=== PATIENT | female | born 1955 | race African-American/Black ===

== ENCOUNTER 2018-03-28 14:28 | Outpatient (CLI) | payer MEDICARE ==
--- NOTE | 2018-03-29 11:06 | MMO ---
BILATERAL SCREENING MAMMOGRAM: INDICATION: Baseline exam. COMPARISON: None. FINDINGS: The interpretation of this examination was assisted with computer-aided detection. Scattered fibroglandular elements. There is benign-appearing calcification within the right and left breasts.. No suspicious mass, cluster of microcalcifications, or area of architectural distortion is evident. IMPRESSION: BI-RADS category 2 - benign. Recommend routine annual mammographic screening. BIRADS 2: Benign Finding(s) Routine annual screening mammography (for women over age 40) POS: [facility]
== END 2018-03-28 14:29 | disposition home or self-care (01) ==
LOC: SCSMAMMO 14:28
PROVIDERS: ATTEND Family Medicine
DX: Z12.31 Encounter for screening mammogram for malignant neoplasm of breast (principal)
CPT/HCPCS: 77067

== ENCOUNTER 2018-10-05 10:53 | Outpatient (CLI) | payer MEDICARE, OTHER ==
--- NOTE | 2018-10-05 15:39 | NM ---
THREE PHASE BONE SCAN: INDICATIONS: Pain. History of artificial hip joint. RADIOPHARMACEUTICAL: Technetium 99m MDP 33 millicuries IV. FINDINGS: There is absence of asymmetric increased radiotracer activity of either hip on the blood flow, blood pool, or delayed phase imaging. Photopenic defects on delayed imaging are seen, relative to adjacent osseous activity at each proximal femur, indicating bilateral hip prostheses. Delayed phase imaging reveals scattered areas of degenerative activity within the axial and appendicu lar skeleton. IMPRESSION: 1. No asymmetrically increased scintigraphic activity of either periprosthetic region of the hip mal nts to confirm loosening. Consider radiographic followup of the hip joints as necessary for further assessment. 2. Scattered degenerative activity of the axial and appendicular skeleton. POS: [facility]
== END 2018-10-05 10:54 | disposition home or self-care (01) ==
LOC: NM 10:53
PROVIDERS: ATTEND Specialist
DX: T84.031A Mechanical loosening of internal left hip prosthetic joint, initial encounter (principal); R94.8 Abnormal results of function studies of other organs and systems
CPT/HCPCS: 78315; A9503

== ENCOUNTER 2019-02-01 14:22 | Outpatient (CLI) | payer MEDICARE, OTHER ==
--- NOTE | 2019-02-01 16:00 | MRI ---
MRI RIGHT SHOULDER WITHOUT IV CONTRAST: HISTORY: Right shoulder pain. Soft tissue palpable finding for 1-1/2 months, marked with a skin marker. FINDINGS: There is no evidence for associated soft tissue mass, in association with the skin marker. AC joint arthrosis changes are noted, with some osteochondrolysis and some adjacent marrow edema of the acromi on and clavicle, with some undersurface spurring of the distal clavicle. Complete full-thickness ret racted tears of the supraspinatus and conjoined tendon and the anterior portion of the infraspinatus tendon with retraction back to a level between the humeral dome and the glenoid. Very poorly defined intraarticular biceps tendon, which has an appearance concerning for a split-type or interstitial ty pe tear. Prominent interstitial and delaminating tears of the subscapularis tendon. Severe muscle volume loss of the supraspinatus and infraspinatus muscles. Very poorly defined blunte d labrum with some subchondral cystic changes of the glenoid. Hypertrophic osteophytosis adjacent to the bicipital groove. IMPRESSION: 1. Extensive multiple rotator cuff tears, as above. 2. Severe muscle volume loss of the supraspinatus and infraspinatus muscles. 3. Very irregular, deformed, blunted labrum. 4. Acromioclavicular joint arthrosis. 5. No evidence for a focal soft tissue mass in the region underlying the skin marker to denote a pal pable area of concern. POS: [facility]
== END 2019-02-01 14:23 | disposition home or self-care (01) ==
LOC: SCSMRI 14:22
PROVIDERS: ATTEND Family Medicine
DX: M25.511 Pain in right shoulder (principal); M75.101 Unspecified rotator cuff tear or rupture of right shoulder, not specified as traumatic; M19.011 Primary osteoarthritis, right shoulder

== ENCOUNTER 2019-09-05 17:39 | Inpatient (IN) | payer MEDICARE, OTHER ==
[2019-09-05 18:15] LABS: #Eosinphils 0.5 thou/uL (0.0-0.7); #Lymphocytes 1.4 thou/uL (1.20-3.40); #Monocytes 0.7 thou/uL (0.11-0.59); #Neutrophils 9.4 thou/uL (1.40-6.50); %Basophils 0.4 % (0.0-1.0); %Eosinophils 4.3 % (0.0-10.0); %Lymphocytes 11.3 % (21.0-51.0); %Neutrophils 78.1 % (42.0-75.0); Hemoglobin 10.7 g/dL (12.0-16.0); Mean Corpuscular HGB CONC 32.2 g/dL (32.0-36.0); Mean Corpuscular Hemoglobin 24.3 pg (27.0-31.0); Mean Corpuscular Volume 75.6 fL (78.0-98.0); Mean Platelet Volume 6.5 fL (7.4-10.4); Platelet Count 208 thou/uL (130-400); RBC Distribution Width 18.5 % (11.5-14.5); Red Blood Cell (RBC) Count 4.41 mill/uL (4.20-5.40)
[2019-09-05 18:27] LABS: ALT (SGPT) 25 U/L (8-55); AST (SGOT) 53 U/L (5-34); Albumin 4.4 g/dL (3.4-4.8); Alkaline Phosphatase 118 U/L (40-110); Anion Gap 16 mmol/L (10-20); BUN (Urea Nitrogen) 9 mg/dL (9.8-20.1); Bilirubin, Total 0.3 mg/dL (0.2-1.2); CK (CPK) 204 U/L (29-168); Calc. Creatinine Clearance 0 mL/min (70-130); Calcium 9.5 mg/dL (7.8-10.44); Carbon Dioxide 25 mmol/L (23-31); Chloride 102 mmol/L (98-107); Estimated GFR-MDRD 64; Globulin 3.8 g/dL (2.4-3.5); Glucose 117 mg/dL (80-115); Protein, Total 8.2 g/dL (6.0-8.3); Sodium 138 mmol/L (136-145)
--- NOTE | 2019-09-05 18:39 | RAD ---
PORTABLE CHEST ONE VIEW: 09/05/19 at 5:44 p.m. HISTORY: Chest pain. FINDINGS/IMPRESSION: Comparison made with the exam of 11/17/18. The heart size is enlarged. There is evidence of old granulomatous disease. The lungs are expanded wi thout focal areas of consolidation, pneumothoraces, samuel pulmonary edema or pleural effusions. POS: [facility]
[2019-09-05] MEDS ORDERED: Acetaminophen 500 MG TAB ONE (19:53)
[2019-09-05] MEDS ORDERED: Ketorolac Tromethamine 30 MG/ML VIAL ONE (22:13)
[2019-09-05 22:27] LABS: Bilirubin Negative (Negative); Blood, Urine Negative (Negative); Clarity Clear (Clear); Glucose, Urine (Dipstick) Normal (Negative); Leukocyte Negative Leu/uL (Negative); Nitrite Negative (Negative); Protein, Urine (Dipstick) Negative (Neg-Trace); Urobilinogen Normal mg/dL (Less than 2)
[2019-09-05 22:51] LABS: Lactic Acid 0.7 mmol/L (0.5-2.2)
[2019-09-05] MEDS ORDERED: cefTRIAXone\\ROCEPHIN 1 GM VIAL ONE (23:02)
--- NOTE | 2019-09-05 23:06 | PDOC.FPRHP ---
- History of Present Illness Chief Complaint: Right-Sided Pain History of Present Illness: Silvia Peck is a 64 y/o female with a PMH significant for OA, multiple hip and knee surgeries and anxiety and depression who presents to the ED after experiencing extreme pain on her right side. Per the patient, she woke up earlier this AM with diffuse pain on her entire right side and found it difficult to move. She states that her pain is more pronounced over her right hip and does not radiate. It was difficult for her to characterize the pain. She also noted that she has been having subjective fevers and chills for 1-2 days, and that her grandson - who lives with her - has been having similar symptoms. She has not taken any medications for her pain or fever. She presented to [facility] earlier in the day and was found to be febrile with O2Sats in the mid-80s, which prompted her presentation to the ED. She denies daily headaches, changes in vision or hearing, rhinorrhea, epistaxis, N/V/D, oral lesions, SOB, ABD pain, dysuria, hematuria, rashes, ulcerations, or syncopal episodes. ED Course: While in the ED, the patient received a 1L bolus of NS, Ceftriaxone 1 g IV, Ketorolac 15 mg and Acetaminophen 950 mg. CBC revealed mild leukocytosis of 12. An intial troponin draw, UA, EKG and CXR were all negative. - Allergies/Adverse Reactions Allergies Allergy/AdvReac Type Severity Reaction Status Date / Time promethazine [From Phenergan] Allergy Unverified 09/06/19 00:45 tramadol Allergy Unverified 09/06/19 00:45 - Home Medications Medication Instructions Recorded Confirmed Type Albuterol Sulfate [Proair HFA] 1 puff INH Q4HR PRN 09/06/19 09/06/19 History Aspirin [Ecotrin Regular Strength] 1 tab PO BID 09/06/19 09/06/19 History Cefadroxil 1 gm PO DAILY 09/06/19 09/06/19 History Cyproheptadine HCl 4 mg PO TID 09/06/19 09/06/[address] [Voltaren] 50 mg PO BID 09/06/19 09/06/19 History Ferrous Sulfate 324 mg PO BID 09/06/19 09/06/19 History Furosemide [Lasix] 20 mg PO DAILY 09/06/19 09/06/19 History Gabapentin 800 mg PO TID 09/06/19 09/06/19 History HYDROcodone/Acetaminophen [Ulysses 1 tab PO QID PRN 09/06/19 09/06/19 History 7.5-325 Tablet] Mometasone Furoate [Nasonex] 2 spray EA NARE DAILY 09/06/19 09/06/19 History PARoxetine HCl [Paxil] 10 mg PO DAILY 09/06/19 09/06/19 History PARoxetine HCl [Paxil] 40 mg PO DAILY 09/06/19 09/06/19 History Pantoprazole Sodium 40 mg PO DAILY 09/06/19 09/06/19 History QUEtiapine Fumarate [SEROquel] 300 mg PO HS 09/06/19 09/06/19 History Terbinafine [LamISIL] 250 mg PO DAILY 09/06/19 09/06/19 History buPROPion HCl [Zyban] 150 mg PO BID 09/06/19 09/06/19 History hydrOXYzine HCl [Hydroxyzine HCl] 25 mg PO HS 09/06/19 09/06/19 History tiZANidine HCl [Tizanidine HCl] 1 cap PO HS 09/06/19 09/06/19 History Comments: hydrOXYzine HCl oral Jessie Sep 05, 2019 18:24 FRANCISCA [facility] [place] tablet : Strength - 25 mg : ORAL Patient Dose: 25 mg Oral once a day (at bedtime). QUEtiapine [facility] Sep 05, 2019 18:24 FRANCISCA [place] tablet : Strength - 300 mg : ORAL Patient Dose: 1 tab(s) Oral once a day (at bedtime). gabapentin MonSep 05, 2019 18:24 FRANCISCA [place] tablet : Strength - 800 mg : ORAL Patient Dose: 1 tab(s) Oral 3 times a day. PARoxetine HCl [facility] Sep 05, 2019 18:25 FRANCISCA [place] tablet : Strength - 10 mg : ORAL Patient Dose: 10 mg Oral once a day. buPROPion HCl [facility] Sep 05, 2019 18:25 FRANCISCA [place] tablet sustained-release 12 hr : Strength - 150 mg : ORAL Patient Dose: 150 mg Oral every 12 hours. cefaDROXil [facility] Sep 05, 2019 18:26 FRANCISCA [place] tablet : Strength - 1 gram : ORAL Patient Dose: 1 g Oral once a day. ferrous sulfate [facility] Sep 05, 2019 18:26 FRANCISCA [place] tablet,delayed release (DR/EC) : Strength - 324 mg (65 mg iron) : ORAL Patient Dose: 1 tab(s) Oral 2 times a day. aspirin oral [facility] Sep 05, 2019 18:27 FRANCISCA [place] tablet : Strength - 325 mg : ORAL Patient Dose: 1 tab(s) Oral 2 times a day. Ulysses [facility] Sep 05, 2019 18:27 FRANCISCA [facility] tablet : Strength - 7.5 mg-325 mg : ORAL Patient Dose: every 6 hours PRN. ProAir HFA [facility] Sep 05, 2019 18:27 FRANCISCA [place] HFA aerosol inhaler : Strength - 90 mcg : INHALATION Patient Dose: every 4 hours prn. Lasix oral [facility] Sep 05, 2019 18:28 FRANCISCA [place] tablet : Strength - 20 mg : ORAL Patient Dose: 1 tab(s) Oral once a day. Nasonex [facility] Sep 05, 2019 18:28 FRANCISCA [place] spray,non-aerosol : Strength - 50 mcg/actuation : NASAL Patient Dose: 2 spray(s) Nares Both once a day. cyproheptadine [facility] Sep 05, 2019 18:28 FRANCISCA [place] tablet : Strength - 4 mg : ORAL Patient Dose: 4 mg Oral 3 times a day. pantoprazole oral [facility] Sep 05, 2019 18:29 FRANCISCA [place] tablet,delayed release (DR/EC) : Strength - 40 mg : ORAL Patient Dose: 40 mg Oral once a day. tiZANidine [facility] Sep 05, 2019 18:29 FRANCISCA [facility] capsule : Strength - 2 mg : ORAL Patient Dose: 1 tab(s) As Needed. terbinafine HCl oral [facility] Sep 05, 2019 18:29 FRANCISCA [place] tablet : Strength - 250 mg : ORAL Patient Dose: 250 mg Oral once a day. diclofenac oral [facility] Sep 05, 2019 18:30 FRANCISCA [place] tablet,delayed release (DR/EC) : Strength - 50 mg : ORAL Patient Dose: 50 mg Oral 2 times a day. PARoxetine HCl [facility] Sep 05, 2019 18:30 FRANCISCA [place] tablet : Strength - 40 mg : ORAL Patient Dose: 40 mg Oral once a day. The above medications were obtained from ER records. - History PMHx: OA, Anxiety, Depression PSHx: Multiple Hip, Knee and Wrist Surgeries FHx: Mother (HTN, DM2) Social: Patient used to abuse EtOH and tobacco, but denies x3 at this time. - Review of Systems General: reports: fever/chills, fatigue Eyes: denies: vision changes ENT: denies: nasal congestion, rhinorrhea Respiratory: denies: cough, congestion, shortness of breath Cardiovascular: reports: chest pain (Patient stated that she thought that "a marble was rolling around" in her chest). denies: edema Gastrointestinal: reports: abdominal pain. denies: nausea, vomiting, diarrhea, constipation Genitourinary: denies: dysuria, discharge Skin: denies: rashes, lesions Musculoskeletal: reports: pain (See HPI), tenderness. denies: swelling Neurological: reports: weakness. denies: syncope Psychological: reports: anxiety, depression - Vital signs BP: [114/69] HR: [101] RR: [20] Tmax: [97/6] Pox: [92]% on [Room Air] Wt: [ 100 kg] - Physical Exam Constitutional: NAD, awake, alert and oriented, well developed HEENT: normocephalic and atraumatic, PERRLA, EOMI, conjunctiva clear, no scleral icterus, grossly normal vision, grossly normal hearing, normal nasal mucosa, MMM, oropharynx clear Neck: supple, FROM, trachea midline, no LAD Chest: no-tender to palpation, no lesions Heart: RRR, normal S1/S2, no murmurs/rubs/gallops, pulses present, no edema Lungs: CTAB, no respiratory distress, good air movement, no rales/rhonchi, no wheezing, no retractions Abdomen: soft, non-tender, no masses/distention Musculoskeletal: normal structure, ROM grossly normal, other (Tenderness to palpation diffusely over right hip, buttock, and lower back) Neurological: no focal deficit Skin: no rash/lesions, capillary refill <2 seconds, no jaundice Heme/Lymphatic: no unusual bruising or bleeding, no purpura, no petechia Psychiatric: intact recent and remote memory FMR H&P: Results - Labs Result Diagrams: 09/06/19 05:25 09/06/19 05:25 Lab results: WBC 12.0 thou/uL (4.8-10.8) H 09/05/19 17:57 Hgb 10.7 g/dL (12.0-16.0) L 09/05/19 17:57 Hct 33.4 % (36.0-47.0) L 09/05/19 17:57 MCV 75.6 fL (78.0-98.0) L 09/05/19 17:57 Plt Count 208 thou/uL (130-400) 09/05/19 17:57 Neutrophils % 78.1 % (42.0-75.0) H 09/05/19 17:57 Sodium 138 mmol/L (136-145) 09/05/19 17:57 Potassium 5.0 mmol/L (3.5-5.1) 09/05/19 17:57 Chloride 102 mmol/L (98-107) 09/05/19 17:57 Carbon Dioxide 25 mmol/L (23-31) 09/05/19 17:57 BUN 9 mg/dL (9.8-20.1) L 09/05/19 17:57 Creatinine 1.06 mg/dL (0.6-1.1) 09/05/19 17:57 Glucose 117 mg/dL (80-115) H 09/05/19 17:57 Lactic Acid 0.7 mmol/L (0.5-2.2) 09/05/19 22:27 Calcium 9.5 mg/dL (7.8-10.44) 09/05/19 17:57 Total Bilirubin 0.3 mg/dL (0.2-1.2) 09/05/19 17:57 AST 53 U/L (5-34) H 09/05/19 17:57 ALT 25 U/L (8-55) 09/05/19 17:57 Alkaline Phosphatase 118 U/L (40-110) H 09/05/19 17:57 Creatine Kinase 204 U/L (29-168) H 09/05/19 17:57 Serum Total Protein 8.2 g/dL (6.0-8.3) 09/05/19 17:57 Albumin 4.4 g/dL (3.4-4.8) 09/05/19 17:57 Urine Ketones Negative mg/dL (Negative) 09/05/19 22:17 Urine Blood Negative (Negative) 09/05/19 22:17 Urine Nitrite Negative (Negative) 09/05/19 22:17 Ur Leukocyte Esterase Negative Nnamid/uL (Negative) 09/05/19 22:17 FMR H&P: A/P - Problem List (1) SIRS (systemic inflammatory response syndrome) Current Visit: Yes Status: Acute Code(s): R65.10 - SIRS OF NON-INFECTIOUS ORIGIN W/O ACUTE ORGAN DYSFUNCTION - Plan Patient is a 64 y/o female currently admitted to the Medical Floor for intractable pain. 1. Intractable Pain -Patient states that pain is worst over entire right side -Patient was febrile at clinic - currently afebrile in ED after administration of antipyretics -s/p 1L NS, Ceftriaxone 1 g IV, Ketorolac and Acetaminophen -Mildly tachycardic but otherwise stable -Physical exam remarkable only for diffuse right-sided TTP -WBCs: 12 -Lactic Acid: 0.7 -EKG: Sinus Tachycardia -CXR: NAF -UA: Negative -UCx: Pending -BCx: Pending -ProCal: Pending -CRP: Pending -Right Hip X-Ray: Pending 2. OA -Likely contributory cause to #1 -Continue home medication regimen 3. Anxiety -Continue home medication regimen 4. Depression -Continue home medication regimen Dispo: Patient is currently admitted to the Medical Floor for Intractable Pain - also meets SIRS criteria. Continue antipyretic medication regimen. Await lab and imaging results per above and consider adjusting medication regimen as needed. Expected LOS > 48H. FMR H&P: Upper Level - Pertinent history 64 y/o F PMHx OA with multiple joint replacements, GERD, Anxiety, Depression, Gout, Chronic hip pain s/p bilateral hip replacements presents for right sided pain. She reports she woke up at 0400 this AM with severe R sided pain that went from her R shoulder down to her leg. She went to see Dr. Parker at clinic and was found to be febrile with hypoxia down to 85%. She was sent over to the ED from there. She reports her pain is back to her baseline at this time. She reports that she drinks about 3 energy drinks per day, usually monster or red bull. She has been having some dizziness periodically, no syncope or presyncope - Pertinent findings BP 131/59, HR 100, RR 18, O2 95% on RA, Temp 99.3 PE: Gen - alert, oriented, NAD CV - tachycardic, 3/6 systolic murmur Lungs - CTAB Abd - protuberant, soft, +BS Ext - no edema Labs: Flu negative, WBC 12, Hb 10.7, BUN 9, Cr 1.06, AST 53, ALT 25, T bili 0.3 , Alk Phos 118 CXR: Cardiomegaly, evidence of old granulomatous disease - Plan Date/Time: 09/05/19 9517 I, Althea Corley MD, PGY-3, have evaluated this patient and agree with findings/ plan as outlined by internal control consultant resident. Pertinent changes/additions are listed here. 1. Intractable pain 2/2 chronic hip pain Pt with exacerbation of her chronic pain that has improved after toradol. -Hip x-ray -Will resume home regimen and if pain is too high then will add on a new medication -Obs on medical 2. SIRS Pt with fever, tachycardia, WBC 12.0. Flu negative. Suspect Viral URI as source. s/p 1 dose rocephin. -Will check procal -UCx and BCx pending -Tylenol prn Chronic medical conditions - see internal control consultant note Will resume home medications Dispo: Obs on medical LOS: Likely less than 48 hours Addendum - Attending - Attending Attestation Date/Time: 09/05/19 8898 I personally evaluated the patient and discussed the management with Dr. Reyes and Dr. Corley I agree with the History, Examination, Assessment and Plan documented above with any addition or exceptions noted below. 64 yo female with OA present for persistent right hip and thigh pain. Patient reports mainly right sided pain but specifically worse in right hip and thigh. Pain with walking. Continues to have pain despite ER interventions. Not improved with home meds. Seen in clinic today. Noted to have fever and hypoxia. Upon arrival to ER, VSS. No evidence of hypoxia. No fever. Flu negative. Elevated HR. Son reports she has been drinking "lots" of energy drinks. He has been very concerned for increased use. Pulses palpated on RLE. Xray reviewed and no significant acute changes noted. Will obs pain overnight for IV pain meds. Transition to PO in AM. Xray report pending. New pain but has been present for a few months. Worsened over the past few days. Pulses present on exam. No previous history of PVD/PAD. Add ESR/CRP to evaluate for infectious source of pain in area. Per history likely viral infection. Procal negative. Will hold antibx overnight and monitor in AM. Resume as needed. Hx of granulomatous lung disease. Mild hypoxic. Appears to be patient's baseline. Continue inhalers. Tachycardia, unsure if related to viral illness or increase use of energy drinks. Patient also unclear as to why she has increased use of energy drinks. Follow up. Continue 1L for ER. More as needed. Monitor. Possible d/c in AM. [facility]
[2019-09-06] MEDS ORDERED: tiZANidine HCl 4 MG TAB PO PRN (00:23)
[2019-09-06] MEDS ORDERED: HYDROcodone/Acetaminophen 7.5/325 mg Tablet PO PRN (01:19)
[2019-09-06] MEDS ORDERED: Acetaminophen 325 MG TAB PO PRN (01:19)
[2019-09-06] MEDS ORDERED: Ondansetron ODT 4 MG TAB PO PRN (01:19)
[2019-09-06 01:22] VITALS: BMI 43.6
--- NOTE | 2019-09-06 05:21 | PDOC.FM ---
- Subjective Subjective: Pt reports that her pain is about the same a this time. She denies any fever, chills, SOB, or chest pain. - Objective MAR Reviewed: Yes Vital Signs & Weight: Vital Signs (12 hours) Temp Pulse Resp BP Pulse Ox 09/06/19 04:19 97.6 F 101 H 20 114/69 92 L 09/06/19 01:21 98.4 F 104 H 18 99/59 L 93 L Weight Weight 99.6 kg Result Diagrams: 09/06/19 05:25 09/06/19 05:25 Phys Exam - Physical Examination Constitutional: NAD HEENT: moist MMs Neck: no JVD Respiratory: no wheezing, clear to auscultation bilateral Cardiovascular: RRR, no significant murmur Gastrointestinal: soft, non-tender, no distention, positive bowel sounds Pain with palpation on the posterior right shoulder TTP of the anterior right hip Neurological: moves all 4 limbs Psychiatric: A&O x 3 Skin: cap refill <2 seconds Dx/Plan - Plan Plan: This is a 64 yo female with a pmh of OA, anxiety, depression, who presents with right sided pain Intractable pain on the right side -Right hip xray shows previous total hip replacement with hardware intact, pending official read -Pt is currently on Zosyn for potential infection -CRP is elevated at 5.22, procal is negative SIRS criteria without a source at this time, likely viral URI -On zosyn -Blood cultures pending Anxiety/Depression -Continue home medications OA -Continue home norco Microcytic anemia -Pending iron studies
[2019-09-06] MEDS ORDERED: PROVENTIL INHALER 6.7 G (200 INHALATIONS) INH PRN (05:25)
[2019-09-06 06:25] LABS: #Eosinphils 0.4 thou/uL (0.0-0.7); #Lymphocytes 1.7 thou/uL (1.20-3.40); #Monocytes 0.8 thou/uL (0.11-0.59); %Basophils 0.3 % (0.0-1.0); %Eosinophils 4.7 % (0.0-10.0); %Lymphocytes 19.1 % (21.0-51.0); %Monocytes 9.3 % (0.0-10.0); %Neutrophils 66.6 % (42.0-75.0); Hemoglobin 9.2 g/dL (12.0-16.0); Mean Corpuscular HGB CONC 31.2 g/dL (32.0-36.0); Mean Corpuscular Hemoglobin 24.2 pg (27.0-31.0); Mean Corpuscular Volume 77.4 fL (78.0-98.0); Mean Platelet Volume 11.4 fL (7.4-10.4); Platelet Count 190 thou/uL (130-400); RBC Distribution Width 18.3 % (11.5-14.5); Red Blood Cell (RBC) Count 3.82 mill/uL (4.20-5.40)
[2019-09-06 06:37] LABS: ALT (SGPT) 17 U/L (8-55); AST (SGOT) 23 U/L (5-34); Albumin 3.4 g/dL (3.4-4.8); Alkaline Phosphatase 92 U/L (40-110); Anion Gap 12 mmol/L (10-20); BUN (Urea Nitrogen) 11 mg/dL (9.8-20.1); Bilirubin, Total 0.2 mg/dL (0.2-1.2); Calc. Creatinine Clearance 100 mL/min (70-130); Calcium 8.8 mg/dL (7.8-10.44); Carbon Dioxide 23 mmol/L (23-31); Chloride 108 mmol/L (98-107); Estimated GFR-MDRD 75; Globulin 3.1 g/dL (2.4-3.5); Glucose 141 mg/dL (80-115); Protein, Total 6.5 g/dL (6.0-8.3); Sodium 139 mmol/L (136-145)
[2019-09-06 07:27] LABS: Iron 28 ug/dL (50-170); Iron Binding Capacity, Total 415 mcg/dL (265-497)
[2019-09-06] MEDS ORDERED: Ferrous Sulfate 325 MG TAB PO SCH ×2 (08:00)
--- NOTE | 2019-09-06 08:27 | RAD ---
RADIOGRAPH RIGHT HIP TWO VIEWS: 09/06/2019 1:22 a.m. HISTORY: A 64-year-old female with right sided hip pain. COMPARISON: None. FINDINGS: Metallic acetabular cup anchored to bone by at least two screws. This articulates with the metallic f emoral head and neck prosthesis component with stem that reaches proximal femoral diaphysis. Single c erclage wire at subtrochanteric level. Large, 4.5 x 2.5 cm, well corticated, ossific fragment in the soft tissue just lateral to the hip prosthesis. No evidence of hardware loosening. No dislocation. IMPRESSION: 1. Status post total right hip replacement arthroplasty. 2. Large ossific fragment in the adjacent soft tissues. 3. No evidence of hardware complications. POS: [facility]
[2019-09-06] MEDS: Aspirin 325 mg Enteric Coated Tablet PO SCH ×2 (08:36→20:23)
[2019-09-06] MEDS: Bupropion 150 MG SR TAB PO SCH ×2 (08:37→20:23)
[2019-09-06] MEDS: Cyproheptadine 4 MG TAB PO SCH ×3 (08:37→20:23)
[2019-09-06] MEDS: Diclofenac Sodium 50 MG DR TAB PO SCH ×2 (08:37→20:23)
[2019-09-06] MEDS: Gabapentin 400 MG CAP PO SCH ×3 (08:37→20:23)
[2019-09-06] MEDS: Enoxaparin Sodium 40 MG/0.4 ML SYRINGE SC SCH (08:38)
[2019-09-06] MEDS: Furosemide 20 MG TAB PO SCH (08:38)
[2019-09-06] MEDS: Fluticasone Propionate Nasal Spray 16 gm Bottle NASAL SCH (08:39)
[2019-09-06] MEDS ORDERED: Gabapentin 300 MG CAP PO SCH (09:00)
[2019-09-06] MEDS ORDERED: buPROPion 75 MG TAB PO SCH (09:00)
[2019-09-06] MEDS ORDERED: Aspirin 325 MG TAB PO SCH (09:00)
[2019-09-06] MEDS ORDERED: Cyproheptadine 4 MG TAB PO SCH (09:00)
[2019-09-06] MEDS ORDERED: hydrOXYzine 25 MG TAB PO SCH (09:00)
[2019-09-06] MEDS ORDERED: PARoxetine 20 MG TAB PO SCH ×2 (09:00)
[2019-09-06] MEDS ORDERED: Furosemide 20 MG TAB PO SCH (09:00)
[2019-09-06] MEDS ORDERED: PAROXETINE HCL 10 MG PO SCH (09:00)
[2019-09-06] MEDS: HYDROcodone/Acetaminophen 7.5/325 mg Tablet PO PRN (10:11)
--- NOTE | 2019-09-06 13:04 | CT ---
CT HEAD WITHOUT CONTRAST: INDICATIONS: Slurred speech and confusion. COMPARISON: None. FINDINGS: The ventricles have normal size and position. Mild chronic ischemic white matter changes are noted. T here is no evidence of acute mass or hemorrhage. No evidence of acute cortical infarct. The paranasal sinuses appear aerated. IMPRESSION: No evidence of acute process. POS: [facility]
--- NOTE | 2019-09-06 13:06 | RAD ---
XR Lumbar Spine 2 Or 3 View History: Fever. Recent epidural steroid injection Comparison: None. Findings: Moderate degenerative changes both SI joints. Bilateral total hip arthroplasties are in shanell ce. Obturator rings are intact. Mild shaped scoliosis thoracolumbar spine. High-grade facet arthrosis lower lumbar spine. Mild narrowing of the L4/L5 and L5/S1 disc spaces. Mild atherosclerotic plaque of the aorta. Phleboliths in the left hemipelvis. Mild stool burden descending colon. Impression: Mild-moderate degenerative change. No acute osseous abnormality.
--- NOTE | 2019-09-06 16:59 | PDOC.EVN ---
Event Note - Event Note Event Note: The patient's chart was reviewed for the purpose of Utilization Management. The patient's acuity of care does not reach the level of inpatient status. Therefore under the Medical Provision Code 44, the patient's status will be changed to Observation. The patient's attending physician has been notified, and agrees.
[2019-09-06] MEDS: Ferrous Sulfate 325 MG TAB PO SCH (17:04)
[2019-09-06] MEDS: hydrOXYzine 25 MG TAB PO SCH (20:23)
[2019-09-06] MEDS: tiZANidine HCl 4 MG TAB PO SCH (20:23)
[2019-09-07] MEDS: Fluticasone Propionate Nasal Spray 16 gm Bottle NASAL SCH (07:57)
[2019-09-07] MEDS: Ferrous Sulfate 325 MG TAB PO SCH ×2 (07:58→17:33)
[2019-09-07] MEDS: Gabapentin 400 MG CAP PO SCH ×3 (07:58→21:41)
[2019-09-07] MEDS: Aspirin 325 mg Enteric Coated Tablet PO SCH ×2 (07:59→21:41)
[2019-09-07] MEDS: Furosemide 20 MG TAB PO SCH (07:59)
[2019-09-07] MEDS: Diclofenac Sodium 50 MG DR TAB PO SCH ×2 (07:59→21:41)
[2019-09-07] MEDS: Enoxaparin Sodium 40 MG/0.4 ML SYRINGE SC SCH (07:59)
[2019-09-07] MEDS: Bupropion 150 MG SR TAB PO SCH ×2 (07:59→21:41)
[2019-09-07] MEDS: Cyproheptadine 4 MG TAB PO SCH ×3 (07:59→21:40)
[2019-09-07] MEDS ORDERED: Clopidogrel Bisulfate 75 MG TAB ONE (10:14)
[2019-09-07] MEDS ORDERED: PARoxetine 20 MG TAB PO SCH (10:45)
--- NOTE | 2019-09-07 11:01 | PDOC.FM ---
- Subjective Subjective: Pt laying in bed. Pt reports having body aches. Reports still having pain in the right side. - Objective Vital Signs & Weight: Vital Signs (12 hours) Temp Pulse Resp BP BP Pulse Ox 09/07/19 07:22 97.6 F 103 H 20 119/75 93 L 09/07/19 04:00 98.6 F 106 H 20 108/66 92 L Weight Weight 99.6 kg I&O: 09/06/19 09/07/19 09/08/19 06:59 06:59 06:59 Intake Total 2049 Balance 2049 Result Diagrams: 09/06/19 05:25 09/06/19 05:25 Radiology Reviewed by me: Yes Radiology: Lumbar X-ray: Mild-moderate degenerative change. No acute osseous abnormality. Brain CT: No evidence of acute process Phys Exam - Physical Examination Constitutional: NAD HEENT: PERRLA, moist MMs Neck: no nodes, supple, full ROM Respiratory: no wheezing, no rales, no rhonchi, clear to auscultation bilateral Cardiovascular: no significant murmur, no rub Pt tahcycardiac. Normal rhythm Gastrointestinal: soft, non-tender, no distention Musculoskeletal: no edema, pulses present Pt has pain in R. anterior hip to palpation. No hernia noted. No abnormality noted Neurological: non-focal, normal sensation, moves all 4 limbs Psychiatric: normal affect, A&O x 3 Skin: no rash, cap refill <2 seconds Dx/Plan (1) SIRS (systemic inflammatory response syndrome) Code(s): R65.10 - SIRS OF NON-INFECTIOUS ORIGIN W/O ACUTE ORGAN DYSFUNCTION Status: Acute - Plan Plan: This is a 64 yo female with a pmh of OA, anxiety, depression, who presents with right sided pain Intractable pain on the right side -Right hip xray shows s/p total R. hip replacement arthroplasy. Large ossific fragment in the adjacent soft tissues. No evidence of hardware complications. -Lumbar spine: Mild-moderate degenerative change. No acute osseous abnormality -CRP is elevated at 5.22, procal is negative. ESR was elevated above 60. Pt initially had low O2 and Fevers at outside clinic. -At this time pt is still having pain in the right side and reports not being able to move well. Will get MRI to evaluated for any underlying pathology with hip replacement and had recent epidural in lumbar spine. -PT/OT consulted for evaluation to see if patient able to move around with pain. SIRS criteria without a source at this time at time of admission, likely viral URI -Pt initially received zosyn for potential infection but was stopped as has not been febrile here. -Blood cultures NGTD -Pt reports body aches- will check Flu at this time Anxiety/Depression -Pt has occasional tachy, jitters and fevers possibly related to above vs concern for Serotonin syndrome. -Pt on seroquel, gabapentin and Paxil. Have held paxil dose at this time. OA -Continue home norco Microcytic anemia -Iron low. Starting tx with ferrous sulfate BID Addendum - Attending - Attending Attestation Date/Time: 09/07/19 [id number] I personally evaluated the patient and discussed the management with Dr. Eaton. I agree with the History, Examination, Assessment and Plan documented above with any addition or exceptions noted below. The patient has pain along right anterior hip and some posterior pain as well. She continues to be mildly tachycardic. With pt's initial fever and elevated crp and esr, there is concern for infection. Will get mri of lumbar spine and pelvis to further evaluate. We will also narrow her psych meds with concern for multiple seratonin agents
[2019-09-07] MEDS ORDERED: Magnevist 469MG/ML 20 ML VIAL ONE ×2 (11:56)
--- NOTE | 2019-09-07 12:33 | MRI ---
EXAM: MRI Pelvis W WO Con PROVIDED CLINICAL HISTORY: Right hip pain and gluteal pain COMPARISON: None FINDINGS: Evaluation is limited due to susceptibility artifact and inhomogeneous fat saturation due to bilatera l hip arthroplasties. Regional marrow signal unaffected by susceptibility artifact appears normal. Regional muscular signal appears unremarkable as visualized. There is minimal noncircumscribed fluid signal intensity in the region of the left trochanteric bursa. There is circumscribed fluid signal intensity seen within the soft tissues at the posterior-lateral a spect of the right femoral component of right hip arthroplasty. This demonstrates rim enhancement on the postcontrast images and measures about 2.2 cm in greatest transverse dimension. No additional concerning enhancement is identified. The visualized intrapelvic contents appear unremarkable. IMPRESSION: 2.2 cm rim-enhancing fluid collection adjacent to the right hip arthroplasty. Correlate with concerns for infection.
--- NOTE | 2019-09-07 12:41 | MRI ---
EXAM: MRI Lumbar Spine W WO Con PROVIDED CLINICAL HISTORY: Back pain COMPARISON: None FINDINGS: 5 lumbar vertebral bodies are assumed. Lumbar alignment appears normal. There is a diffusely congenit ally narrow lumbar spinal canal, with the thecal sac further attenuated caudally by prominence of the epidural fat. Vertebral body heights and intervertebral disc space heights appear preserved. The visualized extraspinal soft tissues appear unremarkable. The conus medullaris is normal in signal and terminates at an appropriate level. At L1-2, there is bilateral facet arthritis without significant central canal or foraminal narrowing apparent. At L2-3, there is bilateral facet arthritis without significant central canal stenosis apparent. Ther e is mild bilateral foraminal narrowing. At L3-4, there is a broad-based disc bulge and bilateral facet arthritis. There is no significant ailyn tral canal stenosis apparent. There is mild bilateral foraminal narrowing. At L4-5, there is a broad-based disc bulge and bilateral facet arthritis. There is circumferential at tenuation of the thecal sac by epidural fat. There is no no further attenuation of the thecal sac. There is moderate bilateral foraminal narrowing. At L5-S1, there is a broad-based disc bulge and bilateral facet arthritis. There is circumferential a ttenuation of the thecal sac by epidural fat. There is no further attenuation of the thecal sac. There is moderate bilateral foraminal narrowing. There is no abnormal contrast enhancement identified. IMPRESSION: 1. No evidence for an acute process. 2. Lumbar spine disc and facet degeneration combined with a congenitally narrow spinal canal and caud al epidural lipomatosis producing canal and foraminal narrowing as described.
[2019-09-07] MEDS ORDERED: Piperacillin/Tazobactam 3.375 GM in Sodium Chloride 0.9% 100 ML IVPB SCH (18:00)
[2019-09-07] MEDS ORDERED: Vancomycin 1.5 GRAM/300 ML BAG 1.5 GM in Premix Bag 1 BAG IVPB SCH (21:00)
[2019-09-07] MEDS ORDERED: Vancomycin HCl 1.5 GM in Sodium Chloride 0.9% 250 ML 300 ML IVPB SCH (21:00)
[2019-09-07] MEDS: hydrOXYzine 25 MG TAB PO SCH (21:41)
[2019-09-07] MEDS: tiZANidine HCl 4 MG TAB PO SCH (21:41)
--- NOTE | 2019-09-08 05:59 | PDOC.FM ---
- Subjective Subjective: Patient sleeping this morning, awakens and voices no complaints. Yesterday afternoon the patient reported to staff that she has a history of staph infection in left hip and is supposed to be on prophylactic antibiotics but cannot recall their name. However she has not been taking these antibiotics. - Objective Vital Signs & Weight: Vital Signs (12 hours) Temp Pulse Resp BP Pulse Ox 09/08/19 04:00 97.7 F 106 H 18 99/66 90 L 09/08/19 00:00 97.4 F L 95 18 110/66 94 L 09/07/19 20:00 98.2 F 92 18 124/76 97 Weight Weight 99.6 kg I&O: 09/06/19 09/07/19 09/08/19 06:59 06:59 06:59 Intake Total 2049 1599 Balance 2049 1599 Result Diagrams: 09/08/19 06:08 09/06/19 05:25 Phys Exam - Physical Examination Constitutional: NAD HEENT: moist MMs Neck: supple Respiratory: no wheezing, no rhonchi, clear to auscultation bilateral Cardiovascular: RRR, no significant murmur Gastrointestinal: positive bowel sounds Musculoskeletal: no edema, pulses present Skin: no rash, normal turgor Dx/Plan (1) SIRS (systemic inflammatory response syndrome) Code(s): R65.10 - SIRS OF NON-INFECTIOUS ORIGIN W/O ACUTE ORGAN DYSFUNCTION Status: Acute - Plan Plan: This is a 64 yo female with a pmh of OA, anxiety, depression, who presents with right sided pain: #Intractable pain on the right side -Right hip xray shows s/p total R. hip replacement arthroplasty. Large ossific fragment in the adjacent soft tissues. No evidence of hardware complications. -Lumbar spine: Mild-moderate degenerative change. No acute osseous abnormality -CRP is elevated at 5.22, procal is negative. ESR was elevated above 60. Pt initially had low O2 and Fevers at outside clinic. -At this time pt is still having pain in the right side and reports not being able to move well. Concern for infection d/t hip replacement and had recent epidural in lumbar spine. -PT/OT consulted for evaluation to see if patient able to move around with pain. -MRI Lumbar spine shows degenerative changes -MRI Pelvis shows 2.2cm rim-enhancing fluid collection concerning for infection -Consult Ortho-Zissimos, appreciate recs -Plan for Fluoroscopic biopsy of right hip on 09/08, will hold off on antibiotics until this is collected #SIRS criteria without a source at this time at time of admission, likely viral URI -Pt initially received zosyn for potential infection but was stopped as has not been febrile here, continue to hold -Blood cultures NGTD -Pt reports body aches- Flu neg #Anxiety/Depression -Pt has occasional tachy, jitters and fevers possibly related to above vs concern for Serotonin syndrome. -Pt on seroquel, gabapentin and Paxil. Have held paxil dose at this time. #OA -Continue home norco #Microcytic anemia -Iron low. Starting tx with ferrous sulfate BID Diet: NPO for biopsy VTE: Lovenox Code status: FULL Dispo: Stable, admitted to observation on medical unit. Await results of biopsy to be performed later today. Will hold off on antibiotics until biopsy performed. Anticipate discharge in <48 hrs. Addendum - Attending - Attending Attestation Date/Time: 09/08/19 0057 I personally evaluated the patient and discussed the management with Dr. Moss. I agree with the History, Examination, Assessment and Plan documented above with any addition or exceptions noted below. Pt with continued pain in the hip. Imaging showed a fluid collection near right hip. She is scheduled for IR to drain the fluid for cultures. Ortho is consulted for evaluation.
[2019-09-08 06:30] LABS: #Basophils 0.1 thou/uL (0.0-0.2); #Eosinphils 0.5 thou/uL (0.0-0.7); #Neutrophils 4.1 thou/uL (1.40-6.50); %Lymphocytes 25.8 % (21.0-51.0); %Monocytes 13.4 % (0.0-10.0); %Neutrophils 52.8 % (42.0-75.0); Hemoglobin 9.5 g/dL (12.0-16.0); Mean Corpuscular HGB CONC 31.3 g/dL (32.0-36.0); Mean Corpuscular Hemoglobin 24.1 pg (27.0-31.0); Platelet Count 190 thou/uL (130-400); Red Blood Cell (RBC) Count 3.94 mill/uL (4.20-5.40); White Blood Cell (WBC) Count 7.7 thou/uL (4.8-10.8)
[2019-09-08] MEDS: Aspirin 325 mg Enteric Coated Tablet PO SCH ×2 (07:18→08:24)
[2019-09-08] MEDS: Enoxaparin Sodium 40 MG/0.4 ML SYRINGE SC SCH (07:18)
[2019-09-08] MEDS: Bupropion 150 MG SR TAB PO SCH (08:38)
[2019-09-08] MEDS: Cyproheptadine 4 MG TAB PO SCH ×2 (08:39→16:05)
[2019-09-08] MEDS: Diclofenac Sodium 50 MG DR TAB PO SCH (08:40)
[2019-09-08] MEDS: Furosemide 20 MG TAB PO SCH (08:41)
[2019-09-08] MEDS: Fluticasone Propionate Nasal Spray 16 gm Bottle NASAL SCH (08:41)
[2019-09-08] MEDS: Ferrous Sulfate 325 MG TAB PO SCH ×2 (08:41→16:06)
[2019-09-08] MEDS: Gabapentin 400 MG CAP PO SCH ×2 (08:42→16:04)
[2019-09-08] MEDS ORDERED: PARoxetine 20 MG TAB PO SCH (09:00)
--- NOTE | 2019-09-08 10:20 | RAD ---
Fluoroscopic guided aspiration right hip HISTORY: Right hip pain. Abnormal fluid collection. FINDINGS: After explaining the procedure and answering all questions, the [facility] and draped in usual sterile fashion. Sterile technique, buffered local anesthesia, fluoroscopic guidance, and an anterior approach were used to carefully advance the tip of a 20-gauge Chiba needle to the fluid collection immediately lateral to the upper margin of the femoral stem right hip prosthesis. A total volume of 7 cc slightly cloudy blood-tinged serous fluid was aspirated and sent to laboratory for evaluation. Needle was removed. Patient tolerated the procedure well and was returned in unchanged condition. IMPRESSION: Technically successful fluoroscopic guided right hip aspiration. Laboratory analysis pend ing.
--- NOTE | 2019-09-08 10:34 | PDOC.BPN ---
- Brief Progress Note Fluoroscopy-guided joint aspiration of right hip completed this morning with Radiology. Was notified by Lab that only about 5mL of fluid sent to lab, so unable to run all studies ordered. Will prioritize having culture of fluid performed, then gram stain, then after that lab will try to run some cytology but may not be able to. There was some issue with tube labeling but nursing staff calling operations and maintenance technician to correct.
[2019-09-08 11:09] VITALS: TEMP 98.1
[2019-09-08] MEDS: HYDROcodone/Acetaminophen 7.5/325 mg Tablet PO PRN ×2 (11:51→16:06)
[2019-09-08 12:03] LABS: BF Color Red; BF RBC Count - Manual 37100 /cumm; BF WBC/Nonhematics Ct. - Manua 300 /cumm; Body Fluid Source Abscess Fluid; Clarity Cloudy/Turbid (Clear)
[2019-09-08 12:36] LABS: BF Segmented Neutrophils 16 %; Cell Count Non Hematic 71 %; Lymphocytes 13 %
--- NOTE | 2019-09-08 13:18 | CON ---
DATE OF CONSULTATION: 09/07/2019 BRIEF HISTORY OF PRESENT ILLNESS: Silvia Peck is a pleasant 64-year-old lady, who was examined in her hospital bed on tower [facility] of [facility] in [place]. She was admitted on September 05, 2019, for pain of the right lower extremity and right lateral thigh. In discussing this pain with the patient, it became apparent that the pain has been present for many months, but has been gradually worsening. She has an extensive history of problems with her right hip with a total of 3 hip surgeries including revision total hip arthroplasty, most recently in August of 2017. I do not have any records available from these surgeries. In September of this year, she was seen by Dr. Christiano Gonzalez and a 3-phase bone scan was performed for workup of possible loosening of this arthroplasty due to ongoing lateral pain. More recently, approximately 3 to 4 weeks ago, she was seen in his office and a steroid injection was performed of the lateral thigh. Despite these efforts, the patient continues to have pain that is now interfering with activities of normal daily living. She localizes over the area of the greater trochanter as her area of maximal discomfort, although does report some pain up in the buttock area as well as some pain that radiates down the thigh. On the evening of her consultation, she was found to be pleasant, awake, alert, and oriented and a relatively good historian. Her hip surgeries were performed in [place]. PAST MEDICAL HISTORY: Remarkable for a history of gastroesophageal reflux, history of osteoarthritis, history of depression and anxiety. PAST SURGICAL HISTORY: Right hip arthroplasty with 2 revisions as well as left knee arthroplasty and prior wrist surgeries, most recent knee arthroplasty performed by Dr. Christiano Gonzalez. FAMILY HISTORY: Noncontributory for this orthopedic problem. SOCIAL HISTORY: The patient does report a history of alcohol abuse and tobacco use in the past, but denies alcohol, tobacco, or drug use at this time. REVIEW OF SYSTEMS: The patient reports subjective fevers and chills prior to admission, although she has not been febrile since being admitted. She denies chest pain or shortness of breath. She denies numbness or tingling in this lower extremity. PHYSICAL EXAMINATION: VITAL SIGNS: This evening, she was found to have a heart rate of 92, respiratory rate of 18, temperature of 98.2 degrees Fahrenheit, and a blood pressure of 124/76. HEENT: Atraumatic and normocephalic. LUNGS: She is breathing comfortably with no shortness of breath. EXTREMITIES: Her pelvis is found to be stable. She has a well-healed anterolateral skin incision at the right thigh. The knee, ankle, and foot appear atraumatic. There is no significant increased warmth or obvious swelling of the right proximal thigh. With log-rolling of the thigh, there is no groin pain. I am able to flex her hip easily to 105 degrees and fully extend it also without significant pain. She does report that when she attempts to stand up from a seated position, she does have pain, and with weightbearing, she also has pain. She points to the lateral thigh as her area of maximal discomfort and to the groin as an area of secondary discomfort. IMAGING STUDIES: X-rays: During the course of her hospitalization, she has had a chest x-ray, 2-view x-ray of the right hip, a lumbar spine x-ray, lumbar spine MRI, and pelvis MRI. I will comment on the 2-view x-ray of the right hip, which shows evidence of a total hip arthroplasty, but with loss of lateral proximal femoral bone around this implant and a greater trochanter that has been detached and is sitting in a slightly elevated position from where one would expect it based on the hip implant. The MRI of the pelvis is remarkable for a fluid collection lateral to the hip implant in this area of bone void, which probably reflects either a trochanteric bursa or just a void from loss of bone from her previous surgeries. LABORATORY DATA: She has a white count of 9.0, a hematocrit of 29.6, and 190,000 platelets. Her sedimentation rate is 62. She has a C-reactive protein of 5.22. ASSESSMENT: This is a 64-year-old lady, status post total hip arthroplasty with revision x2, now with acute on chronic right lateral thigh pain with x-ray showing evidence of a total hip arthroplasty with loss of proximal femoral bone consistent with her history of revision surgery. 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 PLAN: I have spoken with the family practice resident regarding this case. At this time, we are going to proceed with a fluoroscopic aspiration of the small fluid collection at the lateral femoral stem just to rule out infection. If indeed this is negative, I think the patient needs to be worked up further for a possible hip revision surgery, which I believe can be done as an outpatient. She may require wheelchair mobility for a while if the hip is too painful to mobilize with her walker. We have talked that she does have a good working relationship with an arthroplasty specialist in [place] and I think it would be very reasonable for her to follow up with this surgeon for further revision surgery discussion. Job ID: [id number]
[2019-09-08 16:17] VITALS: BP 120/69
== END 2019-09-08 17:23 | disposition home or self-care (01) | DRG 556 ==
LOC: ERS 17:39 → T4-B 23:11 → INTOOBSV 09-06 12:29 → OBSVTOIN 09-06 12:29
PROVIDERS: ADMIT Student in an Organized Health Care Education/Training Program; ATTEND Student in an Organized Health Care Education/Training Program
PROC: 0S993ZZ Drainage of Right Hip Joint, Percutaneous Approach (ICD-10-PCS; principal; 2019-09-08)
DX: M25.551 Pain in right hip (principal); Z68.41 Body mass index [BMI] 40.0-44.9, adult; F41.9 Anxiety disorder, unspecified; F32.9 Major depressive disorder, single episode, unspecified; K21.9 Gastro-esophageal reflux disease without esophagitis; M10.9 Gout, unspecified; Z96.643 Presence of artificial hip joint, bilateral; J06.9 Acute upper respiratory infection, unspecified; D64.9 Anemia, unspecified; J30.9 Allergic rhinitis, unspecified; E66.9 Obesity, unspecified; Z96.652 Presence of left artificial knee joint; Z87.891 Personal history of nicotine dependence; Z88.6 Allergy status to analgesic agent; Z88.8 Allergy status to other drugs, medicaments and biological substances
CPT/HCPCS: 20610; 36415; 70450; 71045; 72100; 72158; 72197; 77002; 80053; 81003; 82550; 83540; 83550; 83605; 84145; 84484; 85025; 85060; 85652; 86140; 87040; 87070; 87205; 87631; 87804; 88173; 89051; 90471; 90732; 93005; 94760; 96361; 96365; 96375; A9579; G0009; J0696; J1650; J1885